=== PATIENT | male | born 1965 | race Caucasian/White ===

== ENCOUNTER 2022-03-13 15:22 | Inpatient (IN) | payer OTHER ==
[~2022-03-13] VITALS: Ht 182.9 cm; Wt 147.4 kg
[~2022-03-13 15:22] MED LIST: AMLODIPINE BESYL5 MG PO; CIPRO500 MG PO; NORCO 5-325 TA1 EACH PO; PANTOPRAZOLE SO40 MG PO; PYRIDIUM200 MG PO; ZOFRAN4 MG PO
[2022-03-13 15:45] LABS: HEMOGLOBIN 13.4 gm/dl (14.0-17.5); RED BLOOD COUNT 4.3 M/UL (4.20-5.50); WHITE BLOOD COUNT 6.9 K/UL (4.5-11.0)
[2022-03-13 16:45] LABS: BUN/CREATININE RATIO 20 (0-10)
[2022-03-14] MEDS ORDERED: MULTIVITAMIN1 EACH PO (09:52)
[2022-03-14] MEDS ORDERED: BUPRENORPHINE HC8 MG SL (09:52)
[2022-03-14] MEDS ORDERED: ASPIRIN EC81 MG PO (09:55)
[2022-03-14] MEDS ORDERED: MELATONIN10 M2 PO (10:01)
[2022-03-14] MEDS ORDERED: CYMBALTA60 MG PO (10:01)
[2022-03-14] MEDS ORDERED: TRAZODONE HCL50 MG PO (10:02)
[2022-03-14] MEDS ORDERED: ANTACID LIQUID355 ML PO (10:03)
[2022-03-14] MEDS ORDERED: BENTYL 10MG CAP10 MG PO (10:03)
[2022-03-14] MEDS ORDERED: CLONIDINE HCL0.1 MG PO (10:04)
[2022-03-14] MEDS ORDERED: COLACE100 MG PO (10:04)
[2022-03-14] MEDS ORDERED: CEPACOL SORE T1 EACH MM (10:04)
[2022-03-14] MEDS ORDERED: DOXEPIN HCL50 MG PO (10:05)
[2022-03-14] MEDS ORDERED: CYCLOBENZAPRINE10 MG PO (10:05)
[2022-03-14] MEDS ORDERED: IBU400 MG PO (10:05)
[2022-03-14] MEDS ORDERED: LACTULOSE20 GM/30 M PO (10:06)
[2022-03-14] MEDS ORDERED: IMODIUM CAP 2 MG2 MG PO (10:06)
[2022-03-14] MEDS ORDERED: TUMS200 MG PO (10:07)
[2022-03-14] MEDS ORDERED: MUCINEX600 MG PO (10:07)
[2022-03-14] MEDS ORDERED: TYLENOL EXTRA500 MG PO (10:08)
[2022-03-14] MEDS ORDERED: ZOFRAN ODT 4 MG4 MG PO (10:08)
[2022-03-14] MEDS ORDERED: VISTARIL 25 MG25 MG PO (10:08)
[2022-03-15 03:57] LABS: HEMOGLOBIN 12.5 gm/dl (14.0-17.5); RED BLOOD COUNT 4.02 M/UL (4.20-5.50); WHITE BLOOD COUNT 5.9 K/UL (4.5-11.0)
[2022-03-15 04:37] LABS: BUN/CREATININE RATIO 18 (0-10)
[2022-03-17 03:04] LABS: HEMOGLOBIN 12.5 gm/dl (14.0-17.5); RED BLOOD COUNT 4.05 M/UL (4.20-5.50); WHITE BLOOD COUNT 5.4 K/UL (4.5-11.0)
[2022-03-17 03:50] LABS: BUN/CREATININE RATIO 24 (0-10)
[2022-03-18] MEDS ORDERED: ISOSORBIDE MONO30 MG PO (14:34)
[2022-03-18] MEDS ORDERED: ATORVASTATIN CA20 MG PO (14:34)
== END 2022-03-19 15:44 | disposition home or self-care (01) | DRG 287 ==
LOC: ER1 15:22 → CDU 19:20 → M/S 03-14 09:47
PROVIDERS: Family Medicine; Physician Assistant Medical; ADMIT Internal Medicine
PROC: B24BZZZ Ultrasonography of Heart with Aorta (ICD-10-PCS; 2022-03-14)
PROC: B2111ZZ Fluoroscopy of Multiple Coronary Arteries using Low Osmolar Contrast (ICD-10-PCS; principal; 2022-03-18)
DX: I25.119 Atherosclerotic heart disease of native coronary artery with unspecified angina pectoris (principal); F11.20 Opioid dependence, uncomplicated; E78.5 Hyperlipidemia, unspecified; Z20.822 Contact with and (suspected) exposure to COVID-19; E66.9 Obesity, unspecified; Z79.01 Long term (current) use of anticoagulants; Z79.82 Long term (current) use of aspirin; Z90.49 Acquired absence of other specified parts of digestive tract; Z82.49 Family history of ischemic heart disease and other diseases of the circulatory system; Z88.5 Allergy status to narcotic agent; Z88.0 Allergy status to penicillin; Z91.041 Radiographic dye allergy status; Z95.5 Presence of coronary angioplasty implant and graft; Z98.890 Other specified postprocedural states; I25.2 Old myocardial infarction
CPT/HCPCS: ECHO; 36415; 71045; 78452; 80048; 80053; 82550; 82553; 83735; 84443; 84484; 85025; 85027; 93005; 93017; 93306; 99152; 99153; 99285; A9502; C1769; C1894; G0378; J0171; J0360; J1644; J2250; J2405; J2785; J3010; Q0177; Q9967